=== PATIENT | male | born 1965 | race African-American/Black ===

== ENCOUNTER 2020-04-08 14:37 | Outpatient (CLI) | payer BC ==
--- NOTE | 2020-04-08 15:48 | MRI ---
MRI OF THE BRAIN WITHOUT CONTRAST: 04/08/20 INDICATIONS: Altered mental status. FINDINGS: Ventricles have normal size and position. There are tiny scattered white matter hyperintensities seen in both cerebral hemispheres in the subcortical and deep white matter. These are nonspecific but mos t likely represent chronic ischemic microvascular change. There is no evidence of restricted diffusion. There is no evidence of mass or edema. No evidence of h emorrhage. There is high T2 and FLAIR signal within the sella turcica. Heterogeneous T1 signal is noted. The pit uitary is poorly delineated. The intracranial internal carotid arteries, cerebral arteries, basilar artery and venous sinuses show flow voids. The paranasal sinuses and mastoids appear clear. IMPRESSION: 1. There are numerous tiny scattered white matter hyperintensities. These are nonspecific but mo st likely represent mild chronic ischemic microvascular white matter changes. 2. Mildly prominent sella turcica. The pituitary is not well delineated on this exam. The sella exhibits high T2 and high FLAIR signal which is not indicative of an empty sella and may indicate a p ituitary mass. Consider further evaluation with MRI of the brain with and without contrast following pituitary protocol. POS: AMANDA
== END 2020-04-08 14:38 | disposition home or self-care (01) ==
LOC: BICMRI 14:37
PROVIDERS: ATTEND Family Medicine
DX: R41.82 Altered mental status, unspecified (principal); G93.89 Other specified disorders of brain
CPT/HCPCS: 70551

== ENCOUNTER 2020-10-20 11:59 | Outpatient (CLI) | payer BC ==
[~2020-10-20 11:59] MED LIST: Iopamidol 370 76% 100 ML VIAL ONE
== END 2020-10-20 12:00 | disposition home or self-care (01) ==
LOC: BICMRI 11:59
PROVIDERS: ATTEND Neurological Surgery
DX: R41.3 Other amnesia (principal); F41.9 Anxiety disorder, unspecified; G95.9 Disease of spinal cord, unspecified; M48.02 Spinal stenosis, cervical region
CPT/HCPCS: 70496; 70498; 72141; Q9967

== ENCOUNTER 2021-05-13 15:13 | Emergency (ER) | payer BC ==
[2021-05-13] MEDS ORDERED: Meclizine HCl 25 MG TAB ONE (16:05)
[2021-05-13 16:47] LABS: #Eosinphils 0.4 thou/uL (0.0-0.7); #Lymphocytes 2.6 thou/uL (1.20-3.40); #Monocytes 0.8 thou/uL (0.11-0.59); #Neutrophils 3.9 thou/uL (1.40-6.50); %Basophils 0.6 % (0.0-1.0); %Eosinophils 5.4 % (0.0-10.0); %Monocytes 10.4 % (0.0-10.0); %Neutrophils 50.7 % (42.0-75.0); Hemoglobin 14.7 g/dL (14.0-18.0); Mean Corpuscular HGB CONC 32.6 g/dL (32.0-36.0); Mean Corpuscular Hemoglobin 28.9 pg (27.0-31.0); Mean Corpuscular Volume 88.5 fL (78.0-98.0); Mean Platelet Volume 8.2 fL (7.4-10.4); Platelet Count 201 thou/uL (130-400); RBC Distribution Width 13.4 % (11.5-14.5); Red Blood Cell (RBC) Count 5.09 mill/uL (4.70-6.10); White Blood Cell (WBC) Count 7.7 thou/uL (4.8-10.8)
[2021-05-13 17:12] LABS: ALT (SGPT) 110 U/L (8-55); AST (SGOT) 66 U/L (5-34); Albumin 3.9 g/dL (3.5-5.0); Alkaline Phosphatase 92 U/L (40-110); Anion Gap 11 mmol/L (10-20); BUN (Urea Nitrogen) 12 mg/dL (8.4-25.7); Bilirubin, Total 0.3 mg/dL (0.2-1.2); Calc. Creatinine Clearance 0 mL/min (70-130); Calcium 9.6 mg/dL (7.8-10.44); Carbon Dioxide 29 mmol/L (22-29); Chloride 108 mmol/L (98-107); Globulin 3.5 g/dL (2.4-3.5); Glucose 115 mg/dL (70-105); Potassium 4.3 mmol/L (3.5-5.1); Protein, Total 7.4 g/dL (6.0-8.3); Sodium 144 mmol/L (136-145)
== END 2021-05-13 17:50 | disposition home or self-care (01) ==
LOC: ERS 15:13
DX: H61.23 Impacted cerumen, bilateral (principal); H81.399 Other peripheral vertigo, unspecified ear; J45.909 Unspecified asthma, uncomplicated; F17.220 Nicotine dependence, chewing tobacco, uncomplicated
CPT/HCPCS: 36415; 69209; 70450; 80053; 83880; 84484; 85025; 93005

== ENCOUNTER 2022-03-09 20:09 | Emergency (ER) | payer BC, SELFPAY ==
[2022-03-09 21:32] LABS: #Eosinphils 0.3 thou/uL (0.0-0.7); #Lymphocytes 2.8 thou/uL (1.20-3.40); #Monocytes 0.9 thou/uL (0.11-0.59); #Neutrophils 5.8 thou/uL (1.40-6.50); %Basophils 0.4 % (0.0-1.0); %Lymphocytes 28.6 % (21.0-51.0); %Monocytes 8.8 % (0.0-10.0); %Neutrophils 59.1 % (42.0-75.0); Hemoglobin 13.4 g/dL (14.0-18.0); Mean Corpuscular HGB CONC 32.6 g/dL (32.0-36.0); Mean Corpuscular Hemoglobin 29.7 pg (27.0-31.0); Mean Corpuscular Volume 91.1 fL (78.0-98.0); Mean Platelet Volume 7.9 fL (7.4-10.4); Platelet Count 277 thou/uL (130-400); RBC Distribution Width 12.4 % (11.5-14.5); Red Blood Cell (RBC) Count 4.53 mill/uL (4.70-6.10); White Blood Cell (WBC) Count 9.8 thou/uL (4.8-10.8)
[2022-03-09 21:55] LABS: ALT (SGPT) 25 U/L (8-55); AST (SGOT) 28 U/L (5-34); Acetaminophen Less than 10.0 mcg/mL (10.0-30.0); Albumin 4.1 g/dL (3.5-5.0); Alcohol Less than 10 mg/dL (Less than 10); Alkaline Phosphatase 72 U/L (40-110); Anion Gap 13 mmol/L (10-20); BUN (Urea Nitrogen) 19 mg/dL (8.4-25.7); Bilirubin, Total 0.3 mg/dL (0.2-1.2); Calc. Creatinine Clearance 0 mL/min (70-130); Calcium 9.3 mg/dL (7.8-10.44); Carbon Dioxide 28 mmol/L (22-29); Chloride 107 mmol/L (98-107); Estimated GFR 83; Globulin 3.7 g/dL (2.4-3.5); Glucose 79 mg/dL (70-105); Potassium 3.9 mmol/L (3.5-5.1); Protein, Total 7.8 g/dL (6.0-8.3); Salicylate Less than 8.0 mg/dL (15.0-30.0); Sodium 144 mmol/L (136-145)
[2022-03-09 22:21] LABS: Bilirubin Negative (Negative); Blood, Urine Negative (Negative); Clarity Clear (Clear); Glucose, Urine (Dipstick) Normal (Negative); Ketone, Urine Negative (Negative); Leukocyte Negative Leu/uL (Negative); Nitrite Negative (Negative); Protein, Urine (Dipstick) 10 mg/dL (Neg-Trace); Specific Gravity, Urine 1.031 (1.002-1.036); Urobilinogen 3 mg/dL (Less than 2); pH, Urine 5.5 (5.0-9.0)
[2022-03-09 22:30] LABS: Amphetamine Not Detected (NotDetected); Barbiturates Screen Not Detected (NotDetected); Benzodiazepine Screen Not Detected (NotDetected); Cocaine Metabolite Screen Not Detected (NotDetected); Methadone Not Detected (NotDetected); Methamphetamine Not Detected (NotDetected); Opiate Screen Not Detected (NotDetected); Oxycodone Screen Not Detected (NotDetected); Phencyclidine (PCP) Not Detected (NotDetected); THC/Cannabinoid Screen Not Detected (NotDetected); Tricyclic Screen Not Detected (NotDetected)
== END 2022-03-10 00:39 ==
LOC: ERS 20:09
DX: R45.1 Restlessness and agitation (principal); E78.5 Hyperlipidemia, unspecified; I10 Essential (primary) hypertension; F17.220 Nicotine dependence, chewing tobacco, uncomplicated; Z79.899 Other long term (current) drug therapy
CPT/HCPCS: 36415; 80053; 80306; 80307; 81003; 82550; 84443; 85025; 93005

== ENCOUNTER 2022-07-03 19:58 | Inpatient (IN) | payer MEDICAID, OTHER ==
[2022-07-03 20:40] LABS: #Eosinphils 0.1 thou/uL (0.0-0.7); #Lymphocytes 1.7 thou/uL (1.20-3.40); #Monocytes 0.9 thou/uL (0.11-0.59); #Neutrophils 4.3 thou/uL (1.40-6.50); %Basophils 0.5 % (0.0-1.0); %Eosinophils 0.9 % (0.0-10.0); %Lymphocytes 24.6 % (21.0-51.0); %Monocytes 12.8 % (0.0-10.0); %Neutrophils 61.1 % (42.0-75.0); Hemoglobin 12.5 g/dL (14.0-18.0); Mean Corpuscular HGB CONC 32.2 g/dL (32.0-36.0); Mean Corpuscular Hemoglobin 30.1 pg (27.0-31.0); Mean Corpuscular Volume 93.4 fl (78.0-98.0); Mean Platelet Volume 8.5 fL (7.4-10.4); Platelet Count 169 10x3/uL (130-400); RBC Distribution Width 14.3 % (11.5-14.5); Red Blood Cell (RBC) Count 4.14 mill/uL (4.70-6.10)
[2022-07-03 21:04] LABS: Acetaminophen Less than 10.0 mcg/mL (10.0-30.0); Alcohol Less than 10 mg/dL (Less than 10); CK (CPK) 139 U/L (30-200); Salicylate Less than 8.0 mg/dL (15.0-30.0)
[2022-07-03 21:05] LABS: ALT (SGPT) 51 U/L (8-55); AST (SGOT) 79 U/L (5-34); Albumin 4.1 g/dL (3.5-5.0); Alkaline Phosphatase 73 U/L (40-110); Anion Gap 15 mmol/L (10-20); BUN (Urea Nitrogen) 33 mg/dL (8.4-25.7); Bilirubin, Total 0.5 mg/dL (0.2-1.2); Calc. Creatinine Clearance 0 mL/min (70-130); Calcium 8.9 mg/dL (7.8-10.44); Carbon Dioxide 30 mmol/L (22-29); Chloride 102 mmol/L (98-107); Estimated GFR 70; Globulin 3.6 g/dL (2.4-3.5); Glucose 71 mg/dL (70-105); Potassium 4.8 mmol/L (3.5-5.1); Protein, Total 7.7 g/dL (6.0-8.3); Sodium 142 mmol/L (136-145)
[2022-07-03] MEDS ORDERED: Ondansetron PF 4 MG/2 ML Vial IVP PRN (23:28)
[2022-07-03] MEDS ORDERED: Acetaminophen 325 MG TAB PO PRN (23:28)
[2022-07-03] MEDS ORDERED: Dextrose 50% Abboject 50 ML SYRINGE SLOW IVP PRN (23:32)
[2022-07-03] MEDS ORDERED: Dextrose 5% in Water 1,000 ML IV PRN (23:32)
[2022-07-04 00:48] VITALS: BMI 30.5
[2022-07-04] MEDS: Dextrose 5 %-0.45 % NaCl 1,000 ML IV SCH ×2 (02:05→14:28)
[2022-07-04 02:13] LABS: Bacteria/HPF None Seen HPF (None Seen); Bilirubin Negative (Negative); Blood, Urine Negative (Negative); CAUTI Indications for Culture Alt mental st,lethar; Clarity Clear (Clear); Glucose, Urine (Dipstick) Normal (Negative); Ketone, Urine 20 mg/dL (Negative); Leukocyte Negative Leu/uL (Negative); Nitrite Negative (Negative); Protein, Urine (Dipstick) Negative (Neg-Trace); RBC/HPF 0-3 HPF (0-3); Specific Gravity, Urine 1.013 (1.002-1.036); Squamous Epithelial 0-3 HPF (0-3); Urobilinogen Normal mg/dL (Less than 2); WBC/HPF 0-3 HPF (0-3); pH, Urine 5.5 (5.0-9.0)
[2022-07-04 02:14] LABS: Urine Culture Reflex No No
[2022-07-04 02:22] LABS: Amphetamine Not Detected (NotDetected); Barbiturates Screen Not Detected (NotDetected); Benzodiazepine Screen Not Detected (NotDetected); Cocaine Metabolite Screen Not Detected (NotDetected); Methadone Not Detected (NotDetected); Methamphetamine Not Detected (NotDetected); Opiate Screen Not Detected (NotDetected); Oxycodone Screen Not Detected (NotDetected); Phencyclidine (PCP) Not Detected (NotDetected); THC/Cannabinoid Screen Not Detected (NotDetected); Tricyclic Screen Not Detected (NotDetected)
[2022-07-04 05:53] LABS: #Eosinphils 0.1 thou/uL (0.0-0.7); #Lymphocytes 1.9 thou/uL (1.20-3.40); #Monocytes 0.8 thou/uL (0.11-0.59); #Neutrophils 3.4 thou/uL (1.40-6.50); %Basophils 0.3 % (0.0-1.0); %Eosinophils 0.9 % (0.0-10.0); %Lymphocytes 31.5 % (21.0-51.0); %Monocytes 12.4 % (0.0-10.0); %Neutrophils 54.9 % (42.0-75.0); Mean Corpuscular HGB CONC 31.5 g/dL (32.0-36.0); Mean Corpuscular Hemoglobin 29.5 pg (27.0-31.0); Mean Corpuscular Volume 93.6 fl (78.0-98.0); Mean Platelet Volume 8.2 fL (7.4-10.4); Platelet Count 162 10x3/uL (130-400); RBC Distribution Width 14.4 % (11.5-14.5); Red Blood Cell (RBC) Count 3.73 mill/uL (4.70-6.10); White Blood Cell (WBC) Count 6.1 10x3/uL (4.8-10.8)
[2022-07-04 06:10] LABS: Anion Gap 11 mmol/L (10-20); BUN (Urea Nitrogen) 23 mg/dL (8.4-25.7); Calc. Creatinine Clearance 113 mL/min (70-130); Carbon Dioxide 28 mmol/L (22-29); Chloride 107 mmol/L (98-107); Estimated GFR 93; Glucose 80 mg/dL (70-105); Potassium 3.8 mmol/L (3.5-5.1); Sodium 142 mmol/L (136-145)
[2022-07-04 06:11] LABS: ALT (SGPT) 40 U/L (8-55); AST (SGOT) 59 U/L (5-34); Albumin 3.2 g/dL (3.5-5.0); Alkaline Phosphatase 59 U/L (40-110); Bilirubin, Direct 0.3 mg/dL (0.1-0.3); Bilirubin, Total 0.4 mg/dL (0.2-1.2); Protein, Total 6.3 g/dL (6.0-8.3)
[2022-07-04] MEDS: Enoxaparin Sodium 40 MG/0.4 ML SYRINGE SC SCH (09:00)
[2022-07-04] MEDS ORDERED: OLANZapine 10 MG VIAL IM SCH (20:15)
[2022-07-04] MEDS ORDERED: Sterile Water 10 ML VIAL FS PRN (20:15)
[2022-07-04] MEDS: Atorvastatin Calcium 10 MG TAB PO SCH (22:13)
[2022-07-04] MEDS: Lisinopril 20 MG TAB PO SCH (22:14)
[2022-07-04] MEDS: hydrOXYzine 25 MG TAB PO PRN (22:14)
[2022-07-04] MEDS: Sertraline 100 MG TAB PO SCH (22:14)
[2022-07-05] MEDS: Dextrose 5 %-0.45 % NaCl 1,000 ML IV SCH ×3 (03:06→21:58)
[2022-07-05 06:32] LABS: Anion Gap 12 mmol/L (10-20); Carbon Dioxide 28 mmol/L (22-29); Chloride 106 mmol/L (98-107); Potassium 3.6 mmol/L (3.5-5.1); Sodium 142 mmol/L (136-145)
[2022-07-05 06:33] LABS: BUN (Urea Nitrogen) 11 mg/dL (8.4-25.7); Calc. Creatinine Clearance 124 mL/min (70-130); Calcium 8.3 mg/dL (7.8-10.44); Estimated GFR 100; Glucose 83 mg/dL (70-105)
[2022-07-05 07:01] LABS: Band 2 % (5-11); Hemoglobin 11.9 g/dL (14.0-18.0); Lymphocytes 41 % (21-51); MDiff Complete? YES; Mean Corpuscular HGB CONC 31.5 g/dL (32.0-36.0); Mean Corpuscular Hemoglobin 29.8 pg (27.0-31.0); Mean Corpuscular Volume 94.7 fl (78.0-98.0); Mean Platelet Volume 7.9 fL (7.4-10.4); Monocytes 8 % (0-10); Neutrophil 49 % (42-75); Platelet Count 150 10x3/uL (130-400); Platelet Morphology Comment Appears Adequate; RBC Distribution Width 14.5 % (11.5-14.5); RBC Morphology Normal; Red Blood Cell (RBC) Count 3.99 mill/uL (4.70-6.10); White Blood Cell (WBC) Count 6.4 10x3/uL (4.8-10.8)
[2022-07-05] MEDS: Lisinopril 20 MG TAB PO SCH ×2 (08:53→21:59)
[2022-07-05] MEDS: Enoxaparin Sodium 40 MG/0.4 ML SYRINGE SC SCH (08:53)
[2022-07-05] MEDS: Sertraline 100 MG TAB PO SCH ×2 (08:54→21:59)
[2022-07-05] MEDS: Bupropion 150 MG XL TAB PO SCH (08:54)
[2022-07-05] MEDS: hydrOXYzine 25 MG TAB PO PRN ×2 (15:00→21:59)
[2022-07-05] MEDS: Atorvastatin Calcium 10 MG TAB PO SCH (21:59)
[2022-07-06 06:44] LABS: Anion Gap 15 mmol/L (10-20); BUN (Urea Nitrogen) 9 mg/dL (8.4-25.7); Calc. Creatinine Clearance 129 mL/min (70-130); Calcium 9.6 mg/dL (7.8-10.44); Carbon Dioxide 26 mmol/L (22-29); Chloride 103 mmol/L (98-107); Estimated GFR 101; Glucose 80 mg/dL (70-105); Potassium 3.9 mmol/L (3.5-5.1); Sodium 140 mmol/L (136-145)
[2022-07-06] MEDS: Sertraline 100 MG TAB PO SCH ×2 (09:13→20:47)
[2022-07-06] MEDS: Bupropion 150 MG XL TAB PO SCH (09:13)
[2022-07-06] MEDS: Lisinopril 20 MG TAB PO SCH ×2 (09:13→20:45)
[2022-07-06] MEDS: Enoxaparin Sodium 40 MG/0.4 ML SYRINGE SC SCH (09:14)
[2022-07-06] MEDS: Dextrose 5 %-0.45 % NaCl 1,000 ML IV SCH (12:22)
[2022-07-06] MEDS: Atorvastatin Calcium 10 MG TAB PO SCH (20:47)
[2022-07-06] MEDS: Haloperidol 1 MG TAB PO SCH (20:47)
[2022-07-07] MEDS: hydrOXYzine 25 MG TAB PO PRN ×2 (00:11→21:50)
[2022-07-07] MEDS: Lorazepam 2 MG/ML VIAL SLOW IVP PRN (00:12)
[2022-07-07] MEDS ORDERED: FLU VACC QS2022-23(6MOS UP)/PF 60 MCG/0.5 ML SYRINGE IM ONE (09:00)
[2022-07-07] MEDS: Bupropion 150 MG XL TAB PO SCH (09:26)
[2022-07-07] MEDS: Lisinopril 20 MG TAB PO SCH ×2 (09:26→21:49)
[2022-07-07] MEDS: Sertraline 100 MG TAB PO SCH ×2 (09:26→21:51)
[2022-07-07] MEDS: Enoxaparin Sodium 40 MG/0.4 ML SYRINGE SC SCH (09:27)
[2022-07-07] MEDS: Haloperidol 1 MG TAB PO SCH (21:50)
[2022-07-07] MEDS: Atorvastatin Calcium 10 MG TAB PO SCH (21:51)
[2022-07-07] MEDS ORDERED: OLANZapine 5 MG TAB PO SCH (22:45)
[2022-07-07] MEDS ORDERED: Lorazepam 2 MG/ML VIAL SLOW IVP SCH (22:45)
[2022-07-08] MEDS: Enoxaparin Sodium 40 MG/0.4 ML SYRINGE SC SCH (11:10)
[2022-07-08] MEDS: Sertraline 100 MG TAB PO SCH ×2 (11:11→20:28)
[2022-07-08] MEDS: Bupropion 150 MG XL TAB PO SCH (11:11)
[2022-07-08] MEDS: Lisinopril 20 MG TAB PO SCH ×2 (11:11→20:27)
[2022-07-08] MEDS: hydrOXYzine 25 MG TAB PO PRN (20:28)
[2022-07-08] MEDS: Atorvastatin Calcium 10 MG TAB PO SCH (20:28)
[2022-07-08] MEDS: Lorazepam 2 MG/ML VIAL SLOW IVP PRN (20:29)
[2022-07-08] MEDS: Haloperidol 1 MG TAB PO SCH (20:29)
[2022-07-08] MEDS ORDERED: Lorazepam 2 MG/ML VIAL SLOW IVP SCH (22:00)
[2022-07-09] MEDS: Enoxaparin Sodium 40 MG/0.4 ML SYRINGE SC SCH (10:45)
[2022-07-09] MEDS: Sertraline 100 MG TAB PO SCH ×2 (10:59→20:35)
[2022-07-09] MEDS: Bupropion 150 MG XL TAB PO SCH (12:34)
[2022-07-09] MEDS: Lisinopril 20 MG TAB PO SCH ×2 (12:34→20:34)
[2022-07-09] MEDS: Lorazepam 2 MG/ML VIAL SLOW IVP PRN ×2 (15:03→21:56)
[2022-07-09] MEDS: hydrOXYzine 25 MG TAB PO PRN (20:34)
[2022-07-09] MEDS: Famotidine 20 MG TAB PO SCH (20:35)
[2022-07-09] MEDS: Atorvastatin Calcium 10 MG TAB PO SCH (20:35)
[2022-07-09] MEDS: Haloperidol 1 MG TAB PO SCH (21:02)
[2022-07-10] MEDS: Lisinopril 20 MG TAB PO SCH ×2 (08:32→20:51)
[2022-07-10] MEDS: Famotidine 20 MG TAB PO SCH ×2 (08:32→20:48)
[2022-07-10] MEDS: Lorazepam 2 MG/ML VIAL SLOW IVP PRN ×2 (08:33→20:48)
[2022-07-10] MEDS: Sertraline 100 MG TAB PO SCH ×2 (08:33→20:48)
[2022-07-10] MEDS: Bupropion 150 MG XL TAB PO SCH (08:43)
[2022-07-10] MEDS: Haloperidol 1 MG TAB PO SCH (20:48)
[2022-07-10] MEDS: hydrOXYzine 25 MG TAB PO PRN (20:48)
[2022-07-10] MEDS: Atorvastatin Calcium 10 MG TAB PO SCH (20:48)
[2022-07-11] MEDS: Lorazepam 2 MG/ML VIAL SLOW IVP PRN ×2 (00:34→04:06)
[2022-07-11] MEDS: hydrOXYzine 25 MG TAB PO PRN ×2 (04:07→20:15)
[2022-07-11] MEDS: Lisinopril 20 MG TAB PO SCH ×2 (08:56→20:12)
[2022-07-11] MEDS: Bupropion 150 MG XL TAB PO SCH (08:56)
[2022-07-11] MEDS: Sertraline 100 MG TAB PO SCH ×2 (08:57→20:11)
[2022-07-11] MEDS: Famotidine 20 MG TAB PO SCH ×2 (08:57→20:11)
[2022-07-11] MEDS ORDERED: Enoxaparin Sodium 40 MG/0.4 ML SYRINGE SC SCH (09:45)
[2022-07-11] MEDS: Enoxaparin Sodium 40 MG/0.4 ML SYRINGE SC SCH (10:57)
[2022-07-11] MEDS: Haloperidol Lactate 5 MG/ML VIAL SLOW IVP SCH (20:10)
[2022-07-11] MEDS: Atorvastatin Calcium 10 MG TAB PO SCH (20:11)
[2022-07-12] MEDS: Lisinopril 20 MG TAB PO SCH ×2 (08:44→20:07)
[2022-07-12] MEDS: Bupropion 150 MG XL TAB PO SCH (08:44)
[2022-07-12] MEDS: Sertraline 100 MG TAB PO SCH ×2 (08:44→20:07)
[2022-07-12] MEDS: Enoxaparin Sodium 40 MG/0.4 ML SYRINGE SC SCH (08:45)
[2022-07-12] MEDS: Famotidine 20 MG TAB PO SCH (08:45)
[2022-07-12] MEDS: Atorvastatin Calcium 10 MG TAB PO SCH (20:07)
[2022-07-12] MEDS ORDERED: Haloperidol Lactate 5 MG/ML VIAL IM SCH (20:30)
[2022-07-12] MEDS: Haloperidol Lactate 5 MG/ML VIAL SLOW IVP SCH (21:25)
[2022-07-13] MEDS: Lisinopril 20 MG TAB PO SCH ×2 (13:31→22:28)
[2022-07-13] MEDS: Sertraline 100 MG TAB PO SCH ×2 (13:31→22:28)
[2022-07-13] MEDS: Bupropion 150 MG XL TAB PO SCH (14:37)
[2022-07-13] MEDS: Atorvastatin Calcium 10 MG TAB PO SCH (22:29)
[2022-07-14 07:16] LABS: #Eosinphils 0.3 thou/uL (0.0-0.7); #Lymphocytes 3.2 thou/uL (1.20-3.40); #Monocytes 1.1 thou/uL (0.11-0.59); %Basophils 0.4 % (0.0-1.0); %Eosinophils 3.3 % (0.0-10.0); %Monocytes 12.8 % (0.0-10.0); %Neutrophils 46.6 % (42.0-75.0); Hemoglobin 13.7 g/dL (14.0-18.0); Mean Corpuscular HGB CONC 32.4 g/dL (32.0-36.0); Mean Corpuscular Hemoglobin 30.1 pg (27.0-31.0); Mean Corpuscular Volume 92.8 fl (78.0-98.0); Mean Platelet Volume 8.2 fL (7.4-10.4); Platelet Count 245 10x3/uL (130-400); RBC Distribution Width 14.1 % (11.5-14.5); Red Blood Cell (RBC) Count 4.56 mill/uL (4.70-6.10); White Blood Cell (WBC) Count 8.5 10x3/uL (4.8-10.8)
[2022-07-14 07:52] LABS: ALT (SGPT) 31 U/L (8-55); AST (SGOT) 40 U/L (5-34); Albumin 3.8 g/dL (3.5-5.0); Alkaline Phosphatase 66 U/L (40-110); Anion Gap 15 mmol/L (10-20); BUN (Urea Nitrogen) 33 mg/dL (8.4-25.7); Bilirubin, Total 0.6 mg/dL (0.2-1.2); Calc. Creatinine Clearance 75 mL/min (70-130); Calcium 9.4 mg/dL (7.8-10.44); Carbon Dioxide 26 mmol/L (22-29); Chloride 106 mmol/L (98-107); Estimated GFR 57; Glucose 72 mg/dL (70-105); Potassium 3.9 mmol/L (3.5-5.1); Protein, Total 7.8 g/dL (6.0-8.3); Sodium 143 mmol/L (136-145)
[2022-07-14] MEDS: Lisinopril 20 MG TAB PO SCH (09:18)
[2022-07-14] MEDS: Sertraline 100 MG TAB PO SCH ×2 (09:18→20:58)
[2022-07-14] MEDS: Bupropion 150 MG XL TAB PO SCH (09:18)
[2022-07-14] MEDS: Enoxaparin Sodium 40 MG/0.4 ML SYRINGE SC SCH (09:19)
[2022-07-14] MEDS: Atorvastatin Calcium 10 MG TAB PO SCH (20:58)
[2022-07-15 08:03] LABS: Anion Gap 14 mmol/L (10-20); BUN (Urea Nitrogen) 35 mg/dL (8.4-25.7); Calc. Creatinine Clearance 63 mL/min (70-130); Calcium 9.2 mg/dL (7.8-10.44); Carbon Dioxide 26 mmol/L (22-29); Chloride 106 mmol/L (98-107); Estimated GFR 46; Glucose 78 mg/dL (70-105); Potassium 3.9 mmol/L (3.5-5.1); Sodium 142 mmol/L (136-145)
[2022-07-15] MEDS: Sertraline 100 MG TAB PO SCH ×2 (10:19→20:37)
[2022-07-15] MEDS: Bupropion 150 MG XL TAB PO SCH (10:19)
[2022-07-15] MEDS: Enoxaparin Sodium 40 MG/0.4 ML SYRINGE SC SCH (10:19)
[2022-07-15] MEDS ORDERED: Ziprasidone 20 MG CAP PO SCH (13:45)
[2022-07-15] MEDS: Ziprasidone 20 MG CAP PO SCH (20:37)
[2022-07-15] MEDS: Senokot S 8.6-50 MG TAB PO SCH (20:37)
[2022-07-15] MEDS: Atorvastatin Calcium 10 MG TAB PO SCH (20:37)
[2022-07-16 08:17] VITALS: TEMP 97.8
[2022-07-16 08:25] LABS: #Eosinphils 0.4 thou/uL (0.0-0.7); #Lymphocytes 3.3 thou/uL (1.20-3.40); #Monocytes 0.8 thou/uL (0.11-0.59); #Neutrophils 4.7 thou/uL (1.40-6.50); %Basophils 0.2 % (0.0-1.0); %Eosinophils 4.6 % (0.0-10.0); %Lymphocytes 35.4 % (21.0-51.0); %Monocytes 8.8 % (0.0-10.0); Hemoglobin 14.2 g/dL (14.0-18.0); Mean Corpuscular HGB CONC 33.8 g/dL (32.0-36.0); Mean Corpuscular Hemoglobin 31.1 pg (27.0-31.0); Mean Corpuscular Volume 91.9 fl (78.0-98.0); Mean Platelet Volume 8.4 fL (7.4-10.4); Platelet Count 215 10x3/uL (130-400); RBC Distribution Width 14.3 % (11.5-14.5); Red Blood Cell (RBC) Count 4.57 mill/uL (4.70-6.10); White Blood Cell (WBC) Count 9.3 10x3/uL (4.8-10.8)
[2022-07-16] MEDS: Bupropion 150 MG XL TAB PO SCH (08:28)
[2022-07-16] MEDS: Senokot S 8.6-50 MG TAB PO SCH (08:28)
[2022-07-16] MEDS: Sertraline 100 MG TAB PO SCH (08:28)
[2022-07-16] MEDS: Ziprasidone 20 MG CAP PO SCH (08:28)
[2022-07-16] MEDS: Enoxaparin Sodium 40 MG/0.4 ML SYRINGE SC SCH (08:28)
[2022-07-16 08:31] LABS: Anion Gap 14 mmol/L (10-20); BUN (Urea Nitrogen) 33 mg/dL (8.4-25.7); Calc. Creatinine Clearance 68 mL/min (70-130); Calcium 9.7 mg/dL (7.8-10.44); Carbon Dioxide 28 mmol/L (22-29); Chloride 102 mmol/L (98-107); Estimated GFR 51; Glucose 106 mg/dL (70-105); Potassium 4.1 mmol/L (3.5-5.1); Sodium 140 mmol/L (136-145)
[2022-07-16] MEDS ORDERED: Benztropine 1 MG TAB PO SCH (09:00)
[2022-07-16] MEDS ORDERED: Polyethylene Glycol 3350 17 GM Packet PO SCH (09:00)
[2022-07-16 15:57] VITALS: BP 97/61
== END 2022-07-16 17:00 | DRG 884 ==
LOC: ERS 19:58 → NEURO 23:09 → OBSVTOIN 07-04 20:27 → T4-A 07-09 16:07
PROVIDERS: ADMIT Internal Medicine; ATTEND Internal Medicine
DX: F03.C11 Unspecified dementia, severe, with agitation (principal); G93.41 Metabolic encephalopathy; N17.9 Acute kidney failure, unspecified; Z20.822 Contact with and (suspected) exposure to COVID-19; Z23 Encounter for immunization; F29 Unspecified psychosis not due to a substance or known physiological condition; I10 Essential (primary) hypertension; J45.20 Mild intermittent asthma, uncomplicated; D64.9 Anemia, unspecified; E78.5 Hyperlipidemia, unspecified; Z89.022 Acquired absence of left finger(s); Z82.3 Family history of stroke; Z79.899 Other long term (current) drug therapy
CPT/HCPCS: 36415; 36416; 70450; 71045; 76770; 80048; 80053; 80076; 80306; 80307; 81001; 82140; 82550; 82570; 83880; 84443; 84484; 85025; 87324; 87449; 87811; 90471; 90686; 93005; 96360; 96361; G0008; J1610; J1630; J1650; J2060; J7042; J7620; U0003; U0005

== ENCOUNTER 2022-07-29 19:57 | Inpatient (IN) | payer OTHER ==
[2022-07-29] MEDS ORDERED: LORazepam 2 MG/ML SYR.(CARPUJECT) ONE (20:16)
[2022-07-29 20:46] LABS: Bilirubin Small (Negative); Blood, Urine Large (Negative); Glucose, Urine (Dipstick) Negative (Negative); Ketone, Urine Trace mg/dL (Negative); Leukocyte Negative (Negative); Nitrite Negative (Negative); Protein, Urine (Dipstick) Negative (Neg-Trace); pH, Urine 5.5 (5.0-9.0)
[2022-07-29 20:48] LABS: Specific Gravity, Urine 1.028 (1.002-1.036)
[2022-07-29 20:49] LABS: Clarity Clear (Clear)
[2022-07-29 20:56] LABS: Amphetamine Not Detected (NotDetected); Barbiturates Screen Not Detected (NotDetected); Benzodiazepine Screen Detected (NotDetected); Cocaine Metabolite Screen Not Detected (NotDetected); Methadone Not Detected (NotDetected); Methamphetamine Not Detected (NotDetected); Opiate Screen Not Detected (NotDetected); Oxycodone Screen Not Detected (NotDetected); Phencyclidine (PCP) Not Detected (NotDetected); THC/Cannabinoid Screen Not Detected (NotDetected); Tricyclic Screen Detected (NotDetected)
[2022-07-29 22:25] LABS: ALT (SGPT) 73 U/L (8-55); AST (SGOT) 100 U/L (5-34); Acetaminophen Less than 10.0 mcg/mL (10.0-30.0); Albumin 3.5 g/dL (3.5-5.0); Alcohol Less than 10 mg/dL (Less than 10); Alkaline Phosphatase 64 U/L (40-110); Anion Gap 15 mmol/L (10-20); BUN (Urea Nitrogen) 42 mg/dL (8.4-25.7); Bilirubin, Total 0.6 mg/dL (0.2-1.2); Calc. Creatinine Clearance 0 mL/min (70-130); Calcium 8.7 mg/dL (7.8-10.44); Carbon Dioxide 24 mmol/L (22-29); Chloride 113 mmol/L (98-107); Estimated GFR 72; Globulin 3.8 g/dL (2.4-3.5); Glucose 95 mg/dL (70-105); Potassium 4.2 mmol/L (3.5-5.1); Protein, Total 7.3 g/dL (6.0-8.3); Salicylate Less than 8.0 mg/dL (15.0-30.0); Sodium 148 mmol/L (136-145)
[2022-07-29 22:27] LABS: Band 3 % (5-11); Hemoglobin 11.8 g/dL (14.0-18.0); Hypochromia SLIGHT = 6-15 cells (100X) (0-5/hpf); Lymphocytes 23 % (21-51); MDiff Complete? YES; Mean Corpuscular HGB CONC 32.7 g/dL (32.0-36.0); Mean Corpuscular Hemoglobin 30.3 pg (27.0-31.0); Mean Corpuscular Volume 92.5 fl (78.0-98.0); Monocytes 6 % (0-10); Neutrophil 67 % (42-75); Platelet Count 212 10x3/uL (130-400); Platelet Morphology Comment Appears Adequate; Reactive Lymphocytes 1 % (0-10); Red Blood Cell (RBC) Count 3.89 mill/uL (4.70-6.10); White Blood Cell (WBC) Count 10.2 10x3/uL (4.8-10.8)
[2022-07-29] MEDS ORDERED: Ondansetron ODT 4 MG TAB PO PRN (23:58)
[2022-07-29] MEDS ORDERED: Ondansetron PF 4 MG/2 ML Vial IVP PRN (23:58)
[2022-07-29] MEDS ORDERED: Acetaminophen 650 MG Suppository PR PRN (23:58)
[2022-07-29] MEDS ORDERED: Acetaminophen 325 MG TAB PO PRN (23:58)
[2022-07-30] MEDS ORDERED: Lactated Ringer's 1,000 ML IV SCH (00:15)
[2022-07-30] MEDS: Lactated Ringer's 1,000 ML IV SCH ×4 (02:57→22:09)
[2022-07-30 06:51] LABS: Hemoglobin 11.8 g/dL (14.0-18.0); Mean Corpuscular HGB CONC 31.6 g/dL (32.0-36.0); Mean Corpuscular Hemoglobin 29.8 pg (27.0-31.0); Mean Corpuscular Volume 94.3 fl (78.0-98.0); Mean Platelet Volume 7.9 fL (7.4-10.4); Platelet Count 215 10x3/uL (130-400); RBC Distribution Width 13.9 % (11.5-14.5); Red Blood Cell (RBC) Count 3.94 mill/uL (4.70-6.10); White Blood Cell (WBC) Count 9.5 10x3/uL (4.8-10.8)
[2022-07-30 06:57] LABS: ALT (SGPT) 72 U/L (8-55); AST (SGOT) 103 U/L (5-34); Albumin 3.3 g/dL (3.5-5.0); Alkaline Phosphatase 66 U/L (40-110); Anion Gap 13 mmol/L (10-20); BUN (Urea Nitrogen) 37 mg/dL (8.4-25.7); Bilirubin, Total 0.5 mg/dL (0.2-1.2); Calc. Creatinine Clearance 88 mL/min (70-130); Calcium 8.6 mg/dL (7.8-10.44); Carbon Dioxide 27 mmol/L (22-29); Chloride 110 mmol/L (98-107); Estimated GFR 81; Globulin 3.7 g/dL (2.4-3.5); Glucose 77 mg/dL (70-105); Potassium 4.1 mmol/L (3.5-5.1); Sodium 146 mmol/L (136-145)
[2022-07-30 07:18] LABS: Band 2 % (5-11); Eosinophils 1 % (0-10); Lymphocytes 14 % (21-51); MDiff Complete? YES; Monocytes 21 % (0-10); Neutrophil 62 % (42-75); Platelet Morphology Comment Appears Adequate; Polychromasia SLIGHT = 2-3 cells (100X) (0-2/hpf)
[2022-07-30] MEDS ORDERED: Bupropion 150 MG XL TAB PO SCH (09:00)
[2022-07-30] MEDS ORDERED: Lisinopril 20 MG TAB PO SCH (09:00)
[2022-07-30] MEDS ORDERED: Senokot S 8.6-50 MG TAB PO SCH (09:00)
[2022-07-30] MEDS ORDERED: Pantoprazole 40 MG VIAL IVP SCH (09:00)
[2022-07-30] MEDS ORDERED: Sertraline 100 MG TAB PO SCH (09:00)
[2022-07-30] MEDS ORDERED: QUEtiapine 200 MG TAB PO SCH (09:30)
[2022-07-30] MEDS ORDERED: Ziprasidone 20 MG VIAL IM SCH ×2 (09:45→21:00)
[2022-07-30] MEDS ORDERED: Divalproex Sodium DR 500 MG TAB PO SCH (09:45)
[2022-07-30] MEDS ORDERED: Ziprasidone 20 MG VIAL ONE (10:01)
[2022-07-30] MEDS ORDERED: Iopamidol-370 76% 500 ML 1 ML ONE (10:17)
[2022-07-30] MEDS: Cefepime 2 GM in Sodium Chloride 0.9% 100 ML IVPB SCH ×2 (14:36→23:11)
[2022-07-30] MEDS: Clindamycin/D5W 600 MG in Premix Bag 1 BAG IVPB SCH (15:47)
[2022-07-30] MEDS ORDERED: Benztropine Mesylate 2 MG/2 ML VIAL IM SCH (18:30)
[2022-07-30] MEDS ORDERED: Atorvastatin Calcium 10 MG TAB PO SCH (21:00)
[2022-07-30] MEDS ORDERED: Cefepime 1 GM in Sodium Chloride 0.9% 100 ML IVPB SCH (21:00)
[2022-07-30] MEDS: Ipratropium/Albuterol 3 ML NEB EZPAP PRN (21:06)
[2022-07-30] MEDS: Valproate Sodium 500 MG in Sodium Chloride 0.9% 100 ML IVPB SCH (22:09)
[2022-07-31] MEDS: Clindamycin/D5W 600 MG in Premix Bag 1 BAG IVPB SCH ×4 (00:18→23:33)
[2022-07-31] MEDS: Ipratropium/Albuterol 3 ML NEB EZPAP PRN (04:09)
[2022-07-31] MEDS ORDERED: Acetaminophen 650 MG Suppository PR SCH (05:15)
[2022-07-31] MEDS: Cefepime 2 GM in Sodium Chloride 0.9% 100 ML IVPB SCH ×2 (05:30→17:08)
[2022-07-31 07:29] LABS: Hemoglobin 11.7 g/dL (14.0-18.0); Mean Corpuscular HGB CONC 31.8 g/dL (32.0-36.0); Mean Corpuscular Hemoglobin 30.2 pg (27.0-31.0); Mean Corpuscular Volume 94.8 fl (78.0-98.0); Mean Platelet Volume 7.9 fL (7.4-10.4); Platelet Count 235 10x3/uL (130-400); RBC Distribution Width 13.9 % (11.5-14.5); Red Blood Cell (RBC) Count 3.89 mill/uL (4.70-6.10); White Blood Cell (WBC) Count 10.8 10x3/uL (4.8-10.8)
[2022-07-31 07:58] LABS: Band 21 % (5-11); Eosinophils 1 % (0-10); Lymphocytes 9 % (21-51); MDiff Complete? YES; Monocytes 17 % (0-10); Neutrophil 52 % (42-75)
[2022-07-31] MEDS ORDERED: Sertraline 100 MG TAB PO SCH (09:00)
[2022-07-31] MEDS ORDERED: QUEtiapine 100 MG TAB PO SCH (09:00)
[2022-07-31] MEDS ORDERED: Dexamethasone 10 MG in Sodium Chloride 0.9% 50 ML IVPB SCH (09:00)
[2022-07-31] MEDS ORDERED: Lisinopril 20 MG TAB PO SCH (09:00)
[2022-07-31] MEDS ORDERED: Sterile Water 10 ML VIAL FS PRN ×2 (09:30→23:30)
[2022-07-31] MEDS ORDERED: Dextrose 5%-Lactated Ringers 1,000 ML IV SCH (09:45)
[2022-07-31] MEDS: Lactated Ringer's 1,000 ML IV SCH (10:22)
[2022-07-31 10:40] LABS: Anion Gap 14 mmol/L (10-20); BUN (Urea Nitrogen) 22 mg/dL (8.4-25.7); Calc. Creatinine Clearance 90 mL/min (70-130); Carbon Dioxide 30 mmol/L (22-29); Chloride 109 mmol/L (98-107); Estimated GFR 84; Glucose 83 mg/dL (70-105); Sodium 149 mmol/L (136-145)
[2022-07-31] MEDS ORDERED: Dextrose 5% in Water 1,000 ML IV SCH (11:00)
[2022-07-31] MEDS ORDERED: Vancomycin 1 GM in Premix Bag 1 BAG IVPB SCH (11:00)
[2022-07-31] MEDS: Ziprasidone 20 MG VIAL IM SCH ×3 (11:27→23:29)
[2022-07-31] MEDS ORDERED: Sterile Water 10 ML ONE (12:01)
[2022-07-31] MEDS: Valproate Sodium 500 MG in Sodium Chloride 0.9% 100 ML IVPB SCH ×2 (12:40→22:00)
[2022-07-31 15:18] LABS: Anion Gap 9 mmol/L (10-20); BUN (Urea Nitrogen) 24 mg/dL (8.4-25.7); Calc. Creatinine Clearance 107 mL/min (70-130); Calcium 8.6 mg/dL (7.8-10.44); Carbon Dioxide 32 mmol/L (22-29); Chloride 111 mmol/L (98-107); Estimated GFR 100; Glucose 115 mg/dL (70-105); Sodium 148 mmol/L (136-145)
[2022-07-31 15:37] LABS: SARS-CoV-2 NAA Rapid Test Not Detected (NotDetected)
[2022-07-31 19:57] LABS: Anion Gap 11 mmol/L (10-20); BUN (Urea Nitrogen) 23 mg/dL (8.4-25.7); Calc. Creatinine Clearance 110 mL/min (70-130); Calcium 8.5 mg/dL (7.8-10.44); Carbon Dioxide 30 mmol/L (22-29); Chloride 107 mmol/L (98-107); Estimated GFR 100; Glucose 149 mg/dL (70-105); Potassium 4.2 mmol/L (3.5-5.1); Sodium 144 mmol/L (136-145)
[2022-07-31] MEDS ORDERED: Lactated Ringer's 1,000 ML IV SCH (20:15)
[2022-07-31] MEDS ORDERED: Vancomycin 1.5 GRAM/300 ML BAG 1.5 GM in Premix Bag 1 BAG IVPB SCH (21:00)
[2022-07-31 23:26] LABS: Anion Gap 10 mmol/L (10-20); BUN (Urea Nitrogen) 25 mg/dL (8.4-25.7); Calc. Creatinine Clearance 112 mL/min (70-130); Calcium 8.5 mg/dL (7.8-10.44); Carbon Dioxide 32 mmol/L (22-29); Chloride 107 mmol/L (98-107); Estimated GFR 100; Glucose 111 mg/dL (70-105); Potassium 4.3 mmol/L (3.5-5.1); Sodium 145 mmol/L (136-145)
[2022-08-01] MEDS: Vancomycin 1 GM in Premix Bag 1 BAG IVPB SCH ×2 (02:17→15:03)
[2022-08-01 05:30] LABS: ALT (SGPT) 79 U/L (8-55); AST (SGOT) 100 U/L (5-34); Alkaline Phosphatase 69 U/L (40-110); Anion Gap 16 mmol/L (10-20); BUN (Urea Nitrogen) 27 mg/dL (8.4-25.7); Bilirubin, Total 0.7 mg/dL (0.2-1.2); Calc. Creatinine Clearance 109 mL/min (70-130); Calcium 8.9 mg/dL (7.8-10.44); Carbon Dioxide 27 mmol/L (22-29); Chloride 106 mmol/L (98-107); Estimated GFR 99; Globulin 4.2 g/dL (2.4-3.5); Glucose 104 mg/dL (70-105); Potassium 4.5 mmol/L (3.5-5.1); Protein, Total 7.2 g/dL (6.0-8.3); Sodium 144 mmol/L (136-145)
[2022-08-01 05:31] LABS: Band 14 % (5-11); Hemoglobin 11.7 g/dL (14.0-18.0); Hypochromia SLIGHT = 6-15 cells (100X) (0-5/hpf); Lymphocytes 10 % (21-51); MDiff Complete? YES; Mean Corpuscular Hemoglobin 31.2 pg (27.0-31.0); Mean Corpuscular Volume 94.5 fl (78.0-98.0); Mean Platelet Volume 8.5 fL (7.4-10.4); Monocytes 14 % (0-10); Neutrophil 62 % (42-75); Platelet Count 227 10x3/uL (130-400); Platelet Morphology Comment Appears Adequate; RBC Distribution Width 13.7 % (11.5-14.5); Red Blood Cell (RBC) Count 3.77 mill/uL (4.70-6.10); White Blood Cell (WBC) Count 10.3 10x3/uL (4.8-10.8)
[2022-08-01] MEDS: Cefepime 2 GM in Sodium Chloride 0.9% 100 ML IVPB SCH ×2 (06:45→18:18)
[2022-08-01] MEDS: Lactated Ringer's 1,000 ML IV SCH ×3 (06:52→21:57)
[2022-08-01] MEDS ORDERED: Dexamethasone 10 MG/ML VIAL SLOW IVP SCH (09:00)
[2022-08-01] MEDS: Clindamycin/D5W 600 MG in Premix Bag 1 BAG IVPB SCH ×3 (09:36→23:50)
[2022-08-01] MEDS: Benztropine Mesylate 2 MG/2 ML VIAL IM SCH (10:41)
[2022-08-01] MEDS: Pantoprazole 40 MG VIAL IVP SCH (10:42)
[2022-08-01] MEDS: Ziprasidone 20 MG VIAL IM SCH ×2 (11:18→21:56)
[2022-08-01] MEDS: Valproate Sodium 500 MG in Sodium Chloride 0.9% 100 ML IVPB SCH ×2 (11:18→21:55)
[2022-08-02 01:55] LABS: Glucose 97 mg/dL (70-105)
[2022-08-02 01:58] LABS: Vancomycin, Trough 15.1 ug/mL
[2022-08-02] MEDS: Vancomycin 1 GM in Premix Bag 1 BAG IVPB SCH ×3 (02:46→20:56)
[2022-08-02] MEDS: Cefepime 2 GM in Sodium Chloride 0.9% 100 ML IVPB SCH ×2 (06:02→18:28)
[2022-08-02] MEDS: Lactated Ringer's 1,000 ML IV SCH (06:08)
[2022-08-02] MEDS: Ziprasidone 20 MG VIAL IM SCH ×2 (10:29→22:39)
[2022-08-02] MEDS: Benztropine Mesylate 2 MG/2 ML VIAL IM SCH (10:30)
[2022-08-02 13:33] LABS: Hemoglobin 12.8 g/dL (14.0-18.0); Mean Corpuscular HGB CONC 32.8 g/dL (32.0-36.0); Mean Corpuscular Volume 94.3 fl (78.0-98.0); Platelet Count 257 10x3/uL (130-400); RBC Distribution Width 13.7 % (11.5-14.5); Red Blood Cell (RBC) Count 4.14 mill/uL (4.70-6.10); White Blood Cell (WBC) Count 10.8 10x3/uL (4.8-10.8)
[2022-08-02 13:52] LABS: Anion Gap 13 mmol/L (10-20); BUN (Urea Nitrogen) 25 mg/dL (8.4-25.7); Calc. Creatinine Clearance 125 mL/min (70-130); Calcium 8.9 mg/dL (7.8-10.44); Carbon Dioxide 29 mmol/L (22-29); Chloride 103 mmol/L (98-107); Estimated GFR 104; Glucose 70 mg/dL (70-105); Potassium 3.5 mmol/L (3.5-5.1); Sodium 141 mmol/L (136-145)
[2022-08-02 13:53] LABS: Band 2 % (5-11); Lymphocytes 26 % (21-51); MDiff Complete? YES; Monocytes 14 % (0-10); Neutrophil 58 % (42-75); Platelet Morphology Comment Appears Adequate; RBC Morphology Normal
[2022-08-02] MEDS ORDERED: Dextrose 50% Abboject 50 ML SYRINGE SLOW IVP PRN (14:17)
[2022-08-02] MEDS ORDERED: Dextrose 5% in Water 1,000 ML IV PRN (14:17)
[2022-08-02] MEDS: Dextrose 5%-Lactated Ringers 1,000 ML IV SCH ×2 (14:47)
[2022-08-02] MEDS: Clindamycin/D5W 600 MG in Premix Bag 1 BAG IVPB SCH ×3 (15:14→23:58)
[2022-08-02] MEDS: Valproate Sodium 500 MG in Sodium Chloride 0.9% 100 ML IVPB SCH ×2 (15:15→22:39)
[2022-08-02] MEDS: Pantoprazole 40 MG VIAL IVP SCH (15:15)
[2022-08-03] MEDS: Dextrose 5%-Lactated Ringers 1,000 ML IV SCH ×3 (01:10→16:46)
[2022-08-03 05:01] LABS: Hemoglobin 12.1 g/dL (14.0-18.0); Mean Corpuscular HGB CONC 31.5 g/dL (32.0-36.0); Mean Corpuscular Hemoglobin 29.4 pg (27.0-31.0); Mean Corpuscular Volume 93.4 fl (78.0-98.0); Mean Platelet Volume 7.7 fL (7.4-10.4); Platelet Count 278 10x3/uL (130-400); RBC Distribution Width 13.6 % (11.5-14.5); White Blood Cell (WBC) Count 8.9 10x3/uL (4.8-10.8)
[2022-08-03] MEDS: Cefepime 2 GM in Sodium Chloride 0.9% 100 ML IVPB SCH ×3 (05:57→22:59)
[2022-08-03 06:02] LABS: Band 3 % (5-11); Hypochromia SLIGHT = 6-15 cells (100X) (0-5/hpf); Lymphocytes 25 % (21-51); MDiff Complete? YES; Monocytes 4 % (0-10); Neutrophil 68 % (42-75); Platelet Morphology Comment Appears Adequate
[2022-08-03 07:12] LABS: ALT (SGPT) 41 U/L (8-55); AST (SGOT) 33 U/L (5-34); Alkaline Phosphatase 61 U/L (40-110); Anion Gap 11 mmol/L (10-20); BUN (Urea Nitrogen) 18 mg/dL (8.4-25.7); Bilirubin, Total 0.6 mg/dL (0.2-1.2); Calc. Creatinine Clearance 124 mL/min (70-130); Carbon Dioxide 33 mmol/L (22-29); Chloride 103 mmol/L (98-107); Estimated GFR 103; Globulin 3.3 g/dL (2.4-3.5); Glucose 88 mg/dL (70-105); Potassium 3.9 mmol/L (3.5-5.1); Protein, Total 6.3 g/dL (6.0-8.3); Sodium 143 mmol/L (136-145)
[2022-08-03] MEDS: Ziprasidone 20 MG VIAL IM SCH ×2 (08:56→21:46)
[2022-08-03] MEDS: Pantoprazole 40 MG VIAL IVP SCH (09:57)
[2022-08-03] MEDS: Clindamycin/D5W 600 MG in Premix Bag 1 BAG IVPB SCH ×3 (09:57→23:43)
[2022-08-03] MEDS: Benztropine Mesylate 2 MG/2 ML VIAL IM SCH (11:43)
[2022-08-03] MEDS: Valproate Sodium 500 MG in Sodium Chloride 0.9% 100 ML IVPB SCH ×2 (11:43→21:41)
[2022-08-03] MEDS: Vancomycin 1 GM in Premix Bag 1 BAG IVPB SCH (14:58)
[2022-08-04] MEDS: Dextrose 5%-Lactated Ringers 1,000 ML IV SCH ×3 (02:16→17:30)
[2022-08-04] MEDS: Vancomycin 1 GM in Premix Bag 1 BAG IVPB SCH ×3 (04:25→17:10)
[2022-08-04 05:07] LABS: Hemoglobin 12.8 g/dL (14.0-18.0); Mean Corpuscular HGB CONC 31.4 g/dL (32.0-36.0); Mean Corpuscular Hemoglobin 29.4 pg (27.0-31.0); Mean Corpuscular Volume 93.6 fl (78.0-98.0); Mean Platelet Volume 7.8 fL (7.4-10.4); Platelet Count 282 10x3/uL (130-400); RBC Distribution Width 13.7 % (11.5-14.5); Red Blood Cell (RBC) Count 4.37 mill/uL (4.70-6.10); White Blood Cell (WBC) Count 6.8 10x3/uL (4.8-10.8)
[2022-08-04 05:30] LABS: Band 1 % (5-11); Lymphocytes 25 % (21-51); MDiff Complete? YES; Monocytes 1 % (0-10); Neutrophil 58 % (42-75); Platelet Morphology Comment Appears Adequate; RBC Morphology Normal; Reactive Lymphocytes 15 % (0-10)
[2022-08-04] MEDS: Cefepime 2 GM in Sodium Chloride 0.9% 100 ML IVPB SCH ×3 (05:36→21:36)
[2022-08-04] MEDS: Clindamycin/D5W 600 MG in Premix Bag 1 BAG IVPB SCH ×3 (09:41→23:27)
[2022-08-04] MEDS: Ziprasidone 20 MG VIAL IM SCH ×2 (09:42→21:15)
[2022-08-04] MEDS: Pantoprazole 40 MG VIAL IVP SCH (09:43)
[2022-08-04] MEDS: Benztropine Mesylate 2 MG/2 ML VIAL IM SCH (10:05)
[2022-08-04] MEDS: Valproate Sodium 500 MG in Sodium Chloride 0.9% 100 ML IVPB SCH ×2 (10:46→20:34)
[2022-08-04 11:56] LABS: ALT (SGPT) 33 U/L (8-55); AST (SGOT) 27 U/L (5-34); Alkaline Phosphatase 59 U/L (40-110); Anion Gap 12 mmol/L (10-20); BUN (Urea Nitrogen) 14 mg/dL (8.4-25.7); Bilirubin, Total 0.7 mg/dL (0.2-1.2); Calc. Creatinine Clearance 111 mL/min (70-130); Calcium 8.3 mg/dL (7.8-10.44); Carbon Dioxide 34 mmol/L (22-29); Chloride 100 mmol/L (98-107); Estimated GFR 100; Globulin 3.4 g/dL (2.4-3.5); Glucose 86 mg/dL (70-105); Potassium 3.7 mmol/L (3.5-5.1); Protein, Total 6.4 g/dL (6.0-8.3); Sodium 142 mmol/L (136-145)
[2022-08-04 15:36] LABS: Vancomycin, Trough 16.2 ug/mL
[2022-08-04 16:37] LABS: HBSAg Index 0.34 S/CO (0-0.99); HIV (1/2) Antibody/Antigen Non-Reactive (NonReactive); HIV 1/2 INDEX 0.12 S/CO (<1.00); Hep B Surf Ag Non-Reactive S/CO (NonReactive)
[2022-08-04 16:44] LABS: Hep C IgG Ab Reflex HepC Qnt (NonReactive); Hep C Index 11.54 S/CO (0-0.79)
[2022-08-04 19:38] LABS: Syphilis Antibody Nonreactive (Nonreactive)
[2022-08-05] MEDS: Dextrose 5%-Lactated Ringers 1,000 ML IV SCH ×2 (01:45→09:38)
[2022-08-05] MEDS: Vancomycin 1 GM in Premix Bag 1 BAG IVPB SCH (05:10)
[2022-08-05] MEDS: Cefepime 2 GM in Sodium Chloride 0.9% 100 ML IVPB SCH ×2 (06:14→13:11)
[2022-08-05 08:34] LABS: Hemoglobin 11.6 g/dL (14.0-18.0); Mean Corpuscular HGB CONC 31.4 g/dL (32.0-36.0); Mean Corpuscular Hemoglobin 29.2 pg (27.0-31.0); Mean Corpuscular Volume 92.8 fl (78.0-98.0); Mean Platelet Volume 7.6 fL (7.4-10.4); Platelet Count 270 10x3/uL (130-400); RBC Distribution Width 13.5 % (11.5-14.5); Red Blood Cell (RBC) Count 3.96 mill/uL (4.70-6.10); White Blood Cell (WBC) Count 8.6 10x3/uL (4.8-10.8)
[2022-08-05 08:56] LABS: ALT (SGPT) 18 U/L (8-55); AST (SGOT) 20 U/L (5-34); Albumin 2.9 g/dL (3.5-5.0); Alkaline Phosphatase 53 U/L (40-110); Anion Gap 11 mmol/L (10-20); BUN (Urea Nitrogen) 11 mg/dL (8.4-25.7); Bilirubin, Total 0.7 mg/dL (0.2-1.2); Calc. Creatinine Clearance 117 mL/min (70-130); Calcium 8.5 mg/dL (7.8-10.44); Carbon Dioxide 33 mmol/L (22-29); Chloride 100 mmol/L (98-107); Estimated GFR 102; Globulin 3.6 g/dL (2.4-3.5); Glucose 97 mg/dL (70-105); Potassium 3.3 mmol/L (3.5-5.1); Protein, Total 6.5 g/dL (6.0-8.3); Sodium 141 mmol/L (136-145)
[2022-08-05] MEDS: Clindamycin/D5W 600 MG in Premix Bag 1 BAG IVPB SCH (09:04)
[2022-08-05] MEDS: Pantoprazole 40 MG VIAL IVP SCH (09:05)
[2022-08-05] MEDS: Ziprasidone 20 MG VIAL IM SCH ×2 (09:06→21:42)
[2022-08-05] MEDS: Lisinopril 20 MG TAB PO SCH (09:06)
[2022-08-05 09:28] LABS: Band 1 % (5-11); Eosinophils 1 % (0-10); Lymphocytes 21 % (21-51); MDiff Complete? YES; Monocytes 15 % (0-10); Myelocyte 2 % (0-0); Neutrophil 60 % (42-75); Platelet Morphology Comment Appears Adequate; Polychromasia SLIGHT = 2-3 cells (100X) (0-2/hpf)
[2022-08-05] MEDS ORDERED: Potassium Chloride 20 MEQ TAB PO SCH (09:30)
[2022-08-05] MEDS: Valproate Sodium 500 MG in Sodium Chloride 0.9% 100 ML IVPB SCH ×2 (09:35→21:42)
[2022-08-05] MEDS ORDERED: Dextrose 5 % And 0.9 % NaCl 1,000 ML IV SCH (13:45)
[2022-08-05] MEDS ORDERED: Amoxicillin/Potassium Clav 875 MG TAB PO SCH (13:53)
[2022-08-05] MEDS: Amoxicillin/Potassium Clav 875 MG TAB PO SCH (21:42)
[2022-08-06 06:39] LABS: Hemoglobin 11.2 g/dL (14.0-18.0); Mean Corpuscular HGB CONC 31.8 g/dL (32.0-36.0); Mean Corpuscular Hemoglobin 29.8 pg (27.0-31.0); Mean Corpuscular Volume 93.5 fl (78.0-98.0); Mean Platelet Volume 7.9 fL (7.4-10.4); Platelet Count 267 10x3/uL (130-400); RBC Distribution Width 13.5 % (11.5-14.5); Red Blood Cell (RBC) Count 3.75 mill/uL (4.70-6.10); White Blood Cell (WBC) Count 9.6 10x3/uL (4.8-10.8)
[2022-08-06 06:57] LABS: Anion Gap 11 mmol/L (10-20); BUN (Urea Nitrogen) 10 mg/dL (8.4-25.7); Calc. Creatinine Clearance 126 mL/min (70-130); Calcium 8.6 mg/dL (7.8-10.44); Carbon Dioxide 33 mmol/L (22-29); Chloride 102 mmol/L (98-107); Estimated GFR 104; Glucose 74 mg/dL (70-105); Potassium 3.5 mmol/L (3.5-5.1); Sodium 142 mmol/L (136-145)
[2022-08-06 07:57] LABS: Band 5 % (5-11); Hypochromia SLIGHT = 6-15 cells (100X) (0-5/hpf); Lymphocytes 16 % (21-51); MDiff Complete? YES; Monocytes 12 % (0-10); Neutrophil 64 % (42-75); Platelet Morphology Comment Appears Adequate; Polychromasia SLIGHT = 2-3 cells (100X) (0-2/hpf); Reactive Lymphocytes 3 % (0-10)
[2022-08-06] MEDS: Valproate Sodium 500 MG in Sodium Chloride 0.9% 100 ML IVPB SCH (09:11)
[2022-08-06] MEDS: Lisinopril 20 MG TAB PO SCH ×2 (09:11→09:12)
[2022-08-06] MEDS: Amoxicillin/Potassium Clav 875 MG TAB PO SCH ×3 (09:11→19:50)
[2022-08-06] MEDS: Ziprasidone 20 MG VIAL IM SCH (09:12)
[2022-08-06 14:54] VITALS: BMI 24.4
[2022-08-06] MEDS: Valproate Sodium 250 mg/5 ml UD Cup PO SCH (19:50)
[2022-08-06] MEDS: Ziprasidone 20 MG CAP PO SCH (19:50)
[2022-08-07 08:14] LABS: Hep C PCR-Quant 2570000 IU/mL (.)
[2022-08-07] MEDS: Valproate Sodium 250 mg/5 ml UD Cup PO SCH ×2 (08:52→20:20)
[2022-08-07] MEDS: Lisinopril 20 MG TAB PO SCH (08:52)
[2022-08-07] MEDS: risperiDONE 0.25 MG TAB PO SCH (08:52)
[2022-08-07] MEDS: Amoxicillin/Potassium Clav 875 MG TAB PO SCH ×2 (08:52→20:19)
[2022-08-07] MEDS: Ziprasidone 20 MG CAP PO SCH (20:19)
[2022-08-07] MEDS ORDERED: Dextrose 5%-Lactated Ringers 1,000 ML IV SCH (22:30)
[2022-08-08 07:26] LABS: Hemoglobin 12.7 g/dL (14.0-18.0); Mean Corpuscular HGB CONC 32.2 g/dL (32.0-36.0); Mean Corpuscular Hemoglobin 30.5 pg (27.0-31.0); Mean Corpuscular Volume 94.6 fl (78.0-98.0); Mean Platelet Volume 8.3 fL (7.4-10.4); Platelet Count 255 10x3/uL (130-400); RBC Distribution Width 13.5 % (11.5-14.5); Red Blood Cell (RBC) Count 4.18 mill/uL (4.70-6.10); White Blood Cell (WBC) Count 11.2 10x3/uL (4.8-10.8)
[2022-08-08 07:46] LABS: Anion Gap 17 mmol/L (10-20); BUN (Urea Nitrogen) 9 mg/dL (8.4-25.7); Calc. Creatinine Clearance 137 mL/min (70-130); Calcium 9.1 mg/dL (7.8-10.44); Carbon Dioxide 25 mmol/L (22-29); Chloride 101 mmol/L (98-107); Estimated GFR 107; Glucose 63 mg/dL (70-105); Sodium 139 mmol/L (136-145)
[2022-08-08] MEDS: risperiDONE 0.25 MG TAB PO SCH (08:03)
[2022-08-08] MEDS: Amoxicillin/Potassium Clav 875 MG TAB PO SCH ×2 (08:03→20:21)
[2022-08-08] MEDS: Valproate Sodium 250 mg/5 ml UD Cup PO SCH ×2 (08:03→20:21)
[2022-08-08] MEDS: Lisinopril 20 MG TAB PO SCH (08:04)
[2022-08-08] MEDS: Ziprasidone 20 MG CAP PO SCH (20:21)
[2022-08-09] MEDS: Valproate Sodium 250 mg/5 ml UD Cup PO SCH ×2 (08:54→20:31)
[2022-08-09] MEDS: Lisinopril 20 MG TAB PO SCH (08:55)
[2022-08-09] MEDS: risperiDONE 0.25 MG TAB PO SCH (08:55)
[2022-08-09] MEDS: Ziprasidone 20 MG CAP PO SCH (20:31)
[2022-08-10 07:11] LABS: Hemoglobin 12.1 g/dL (14.0-18.0); Mean Corpuscular Hemoglobin 29.5 pg (27.0-31.0); Mean Corpuscular Volume 92.3 fl (78.0-98.0); Mean Platelet Volume 7.8 fL (7.4-10.4); Platelet Count 322 10x3/uL (130-400); RBC Distribution Width 13.5 % (11.5-14.5); Red Blood Cell (RBC) Count 4.09 mill/uL (4.70-6.10); White Blood Cell (WBC) Count 9.3 10x3/uL (4.8-10.8)
[2022-08-10 07:18] LABS: Anion Gap 13 mmol/L (10-20); BUN (Urea Nitrogen) 10 mg/dL (8.4-25.7); Calc. Creatinine Clearance 131 mL/min (70-130); Calcium 9.2 mg/dL (7.8-10.44); Carbon Dioxide 31 mmol/L (22-29); Chloride 101 mmol/L (98-107); Estimated GFR 105; Glucose 71 mg/dL (70-105); Potassium 3.8 mmol/L (3.5-5.1); Sodium 141 mmol/L (136-145)
[2022-08-10] MEDS: risperiDONE 0.25 MG TAB PO SCH (08:16)
[2022-08-10] MEDS: Lisinopril 20 MG TAB PO SCH (08:16)
[2022-08-10] MEDS: Valproate Sodium 250 mg/5 ml UD Cup PO SCH ×2 (08:16→18:33)
[2022-08-10 12:31] VITALS: TEMP 97.6
[2022-08-10] MEDS: Ziprasidone 20 MG CAP PO SCH (18:33)
[2022-08-10 18:39] VITALS: BP 149/85
== END 2022-08-10 19:11 | DRG 917 ==
LOC: ERS 19:57 → ERHOLD 22:56 → EEVIPCON 22:57 → OBSVTOIN 22:57 → T4-A 07-30 13:01 → 2NO 07-31 17:26 → T4-A 08-05 20:22
PROVIDERS: ADMIT Family Medicine; ATTEND Family Medicine
DX: T43.591A Poisoning by other antipsychotics and neuroleptics, accidental (unintentional), initial encounter (principal); Z66 Do not resuscitate; Z20.822 Contact with and (suspected) exposure to COVID-19; G93.41 Metabolic encephalopathy; J69.0 Pneumonitis due to inhalation of food and vomit; J96.01 Acute respiratory failure with hypoxia; F03.C11 Unspecified dementia, severe, with agitation; E87.0 Hyperosmolality and hypernatremia; N17.9 Acute kidney failure, unspecified; K11.20 Sialoadenitis, unspecified; E86.0 Dehydration; E78.5 Hyperlipidemia, unspecified; I10 Essential (primary) hypertension; F32.A Depression, unspecified; J45.20 Mild intermittent asthma, uncomplicated; G47.30 Sleep apnea, unspecified; R74.01 Elevation of levels of liver transaminase levels; R94.31 Abnormal electrocardiogram [ECG] [EKG]; R22.1 Localized swelling, mass and lump, neck; Z79.899 Other long term (current) drug therapy; Z91.013 Allergy to seafood; Z74.01 Bed confinement status; Z99.3 Dependence on wheelchair; Z78.1 Physical restraint status
CPT/HCPCS: 36415; 36416; 51701; 70360; 70450; 70491; 70551; 71045; 71250; 80048; 80053; 80164; 80202; 80306; 80307; 81003; 81015; 82140; 82550; 84145; 84443; 84484; 85025; 85027; 86780; 86803; 87040; 87081; 87340; 87389; 87522; 87633; 87811; 93005; 93010; 94640; 94760; 95712; 95816; 95819; 95957; 96374; C9113; J0515; J0692; J1100; J1650; J2060; J3370-JW; J3486; J3490; J7042; J7070; J7120; J7620; J7999; Q9967